=== PATIENT | male | born 1980 | race Caucasian/White ===

== ENCOUNTER 2021-07-06 09:55 | Emergency (ER) | payer BC, SELFPAY ==
[2021-07-06 10:46] VITALS: BP 134/90; PULSE 84; RESP 19; TEMP 36.8; O2SAT 98; BMI 26.4
--- NOTE | 2021-07-06 10:48 | HMH.EDUTC ---
[facility] [place] Clinical Impression: Strep throat Disposition: Home, Self-Care Condition on Discharge: Good Instructions: DI for Strep Throat, Strep Throat Additional Instructions: Drink plenty of fluids. Take tylenol or ibuprofen for pain or fever. Take the medications as directed. Follow up with your regular doctor. GO TO THE ER FOR ANY WORSENING SYMPTOMS Throw your tooth brush away and get a new one. Prescriptions: Brompheniramine/Pseudoephed/Dm [Bromfed Dm Cough Syrup] 5 ml PO Q6HP PRN #240 ml PRN Reason: Cough Transmission Status: Pending to [facility] # Amoxicillin [Amoxicillin 500mg Tab] 500 mg PO TID 10 Days #30 tab Transmission Status: Pending to [facility] # methylPREDNISolone [Medrol] 4 mg PO DIRECTED 6 Days #21 packet Transmission Status: Pending to [facility] # Referrals: Provider,Referral, MD [Primary Care Provider] - Forms: Work/School Release Time of Disposition: 11:41 Medical Decision Making - Medical Records Medical records reviewed: No: I reviewed the patient's medical records. - Karthikeyan Inquiry Pt receiving controlled substance: No Vital Signs: 07/06/21 10:46 Temperature 98.2 F Temperature Source Oral Pulse Rate [Left] 84 Respiratory Rate 19 Blood Pressure [Right Arm] 134/90 Blood Pressure Mean [Right Arm] 104 02 Sat by Pulse Oximetry 98 - Lab Data Lab results reviewed: Yes: I reviewed the patient's lab results. Lab Results 07/06/21 10:53: Strep Scn Rapid Clinic Positive [facility] [place] - General Stated complaint: possible strep Time Seen by Provider: 07/06/21 10:48 - History of Present Illness Provider Complaint: He states that he has had a sore throat for the past 2 days. He has had chilling and low grade fever also. - Related Data Previous Rx's Medication Instructions Recorded Amoxicillin [Amoxicillin 500mg Tab] 500 mg PO TID 10 Days #30 tab 07/06/21 Brompheniramine/Pseudoephed/Dm 5 ml PO Q6HP PRN #240 ml 07/06/21 [Bromfed Dm Cough Syrup] methylPREDNISolone [Medrol] 4 mg PO DIRECTED 6 Days #21 07/06/21 packet Allergies Allergy/AdvReac Type Severity Reaction Status Date / Time No Known Allergies Allergy Verified 07/06/21 10:49 [facility] History - Hepatitis A Screen Attestation statement:: This patient has been screened for Hepatitis A risk factors. I have reviewed the patient's past medical history: Yes ROS Obtained: Yes All systems reviewed & no additional complaints - Constitutional Constitutional: Reports as per HPI - Eyes Eyes: Denies eye discharge - ENT Ears, Nose, Mouth, and Throat: Reports as per HPI - Cardiovascular Cardiovascular: Denies chest pain - Respiratory Respiratory: Denies chest congestion, Reports cough, Denies dyspnea, Denies stridor, Denies wheezing - Gastrointestinal Gastrointestingal: Reports: nausea. Denies: abdominal pain, diarrhea, vomiting - Musculoskeletal Musculoskeletal: Denies joint pain - Integumentary/Breasts Skin/Breast: Denies rash Physical Exam - General General appearance: alert, in no apparent distress - Head Head exam: atraumatic, normocephalic, normal inspection - Eye Eye exam: Present: normal appearance, PERRL, EOMI - ENT ENT exam: Present: mucous membranes moist, normal external ear exam - Expanded ENT Exam TM/Canal exam: Bilateral TM: erythema, bulging Nose exam: Absent: sinus tenderness Nasal speculum exam: Bilateral: normal Mouth exam: Present: normal external inspection, tongue normal. Absent: drooling Teeth exam: Present: normal inspection Throat exam: Present: tonsillar erythema, tonsillomegaly, tonsillar exudate. Absent: R peritonsillar mass, L peritonsillar mass, muffled voice - Neck Neck exam: Present: normal inspection, full ROM, trachea midline. Absent: meningismus, lymphadenopathy - Chest Chest inspection: Present: normal inspection, symmetric chest wall rise. Absent
[2021-07-06 10:54] LABS: UTC Strep Screen (Rapid) Positive (Negative)
[2021-07-06 11:47] VITALS: BP 134/90; PULSE 84; RESP 19; TEMP 36.8
== END 2021-07-06 11:48 | disposition home or self-care (01) ==
PROVIDERS: Emergency Provider Nurse Practitioner Family
DX: J02.0 Streptococcal pharyngitis (principal); B95.0 Streptococcus, group A, as the cause of diseases classified elsewhere
CPT/HCPCS: 87880; 99213; 99283; G0463

== ENCOUNTER 2021-12-25 09:33 | Emergency (ER) | payer BC, SELFPAY ==
[2021-12-25 09:45] VITALS: BP 137/84; PULSE 80; RESP 18; TEMP 36.8; O2SAT 97; BMI 26.4
--- NOTE | 2021-12-25 10:10 | EXP.UTC ---
Discharge Plan Disposition Patient Disposition: Home, Self-Care Condition: Good Prescriptions Prescriptions: New amoxicillin 875 mg tablet 875 mg PO BID 10 Days Qty: 20 0RF veottgtfskqzkew-qataftsqg-JF [Bromfed DM] 2-30-10 mg/5 mL syrup 10 ml PO Q6H PRN (Reason: cold symptoms) Qty: 200 0RF No Action amoxicillin 500 MG tablet 500 mg PO TID 10 Days Qty: 30 0RF methylprednisolone 4 MG tablets,dose pack 4 mg PO DIRECTED 6 Days Qty: 21 0RF gwmkxxubzddoqxc-jymvjxkab-QP 118 ML syrup 5 ml PO Q6HP PRN (Reason: Cough) Qty: 240 0RF Referrals Follow up/Referrals: Provider,Referral, MD [Primary Care Provider] - See instructions Activity Restrictions/Add. Instructions Additional Instructions/Restrictions: Take medication as prescribed. Wait one week and if drainage turns green then take antibiotics. Increase fluids and rest. If no improvement or symptoms worsen, follow up with PCP. Clinical Impressions Clinical Impression: Acute upper respiratory infection Discharge ED Provider: Mariangel Zafar [facility] General Stated complaint: cough, drainage Mode of Arrival: Ambulatory Source of Information: Patient Limitations: No Limitations Time Seen by Provider: 12/25/21 10:00 Description of Symptoms (Recalled from Triage Doc. by RN): PATIENT C/O COUGH AND SINUS CONGESTION X 2 DAYS HEENT Symptoms (Recalled from RN notes): Yes Resp Symptoms (Recalled from RN notes): Yes Skin Symptoms (Recalled from RN notes): No MS Symptoms (Recalled from RN notes): No Functional Status (Recalled from RN notes): WNL History of Present Illness Provider Complaint: pt relates that for the last 2 days he has had a dry cough and sinus symptoms. Pt states that he has not taken anything for his symptoms. He relates that he does not want a Covid test. Related Data Previous Rx's Medication Instructions Recorded amoxicillin 500 mg tablet 500 mg PO TID 10 days #30 tabs 07/06/21 smvnrfndssaobqz-xbqakitqvmxumim-PH 5 ml PO Q6HP PRN Cough #240 mL 07/06/21 2 mg-30 mg-10 mg/5 mL oral syrup methylprednisolone 4 mg tablets in 4 mg PO DIRECTED 6 days #21 07/06/21 a dose pack packets amoxicillin 875 mg tablet 875 mg PO BID 10 days #20 tabs 12/25/21 qznfkszavgyqjoz-kpligcnxoeghenx-EI 10 ml PO Q6H PRN cold symptoms 12/25/21 2 mg-30 mg-10 mg/5 mL oral syrup #200 mL (Bromfed DM) Allergies Allergy/AdvReac Type Severity Reaction Status Date / Time No Known Allergies Allergy Verified 07/06/21 10:49 Worker's Comp Is this a Worker's Comp case?: No PFSH PFSH Medical History (Updated 12/25/21 @ 10:16 by Mariangel Zafar APRN) Hyperlipidemia Surgical History (Updated 12/25/21 @ 09:56 by Rita Hinojosa, RN) History of adenoidectomy Social History (Updated 12/25/21 @ 09:56 by Rita Hinojosa, DOM) Smoking Status: Unknown if ever smoked alcohol intake: current current occupational status: employed Travel in the last 8 weeks: Inside the [place] ROS Obtained: Yes All systems reviewed & no additional complaints except as documented and Yes Systems reviewed as appropriate & no additional complaints except as documented Constitutional Constitutional: Reports system reviewed and no additional complaints, except as documented ENT Ears, Nose, Mouth, and Throat: Reports nasal congestion, Reports nasal discharge, Reports post nasal drip and Reports sinus pressure Cardiovascular Cardiovascular: Reports system reviewed and no additional complaints, except as documented and Denies dyspnea Respiratory Respiratory: Denies shortness of breath, Reports cough, Reports non-productive cough and Denies dyspnea Musculoskeletal Musculoskeletal: Reports system reviewed and no additional complaints, except as documented Integumentary/Breasts Skin/Breast: Reports system reviewed and no additional complaints, except as documented Neurologic Neurologic: Reports system reviewed and no additional complaints, except as document
[2021-12-25 10:21] VITALS: BP 129/77; PULSE 89; RESP 19; TEMP 36.8; O2SAT 99
== END 2021-12-25 10:22 | disposition home or self-care (01) ==
PROVIDERS: Emergency Provider Nurse Practitioner Family
DX: J22 Unspecified acute lower respiratory infection (principal)
CPT/HCPCS: 99212; G0463

== ENCOUNTER 2022-09-15 09:39 | Emergency (ER) | payer BC, SELFPAY ==
[2022-09-15 09:39] VITALS: BP 128/75; PULSE 65; RESP 18; TEMP 37.2; O2SAT 98; BMI 26.4
--- NOTE | 2022-09-15 10:12 | EXP.UTC ---
Discharge Plan Disposition Patient Disposition: Home, Self-Care Condition: Good Prescriptions Prescriptions: New prednisone 10 mg tablet 10 mg PO BID 3 Days Qty: 6 0RF amoxicillin [amoxicillin] 875 mg tablet 875 mg PO Q12H Qty: 20 0RF No Action amoxicillin 500 MG tablet 500 mg PO TID 10 Days Qty: 30 0RF methylprednisolone 4 MG tablets,dose pack 4 mg PO DIRECTED 6 Days Qty: 21 0RF sjnnujfcfugkoda-bbiwkcoxs-EJ 118 ML syrup 5 ml PO Q6HP PRN (Reason: Cough) Qty: 240 0RF amoxicillin 875 mg tablet 875 mg PO BID 10 Days Qty: 20 0RF pthrszzbzazwpkf-glbtgtubf-UF [Bromfed DM] 2-30-10 mg/5 mL syrup 10 ml PO Q6H PRN (Reason: cold symptoms) Qty: 200 0RF Referrals Follow up/Referrals: Provider,Referral, MD [Primary Care Provider] - See instructions Activity Restrictions/Add. Instructions Additional Instructions/Restrictions: Drink plenty of fluids. Take tylenol or ibuprofen for pain or fever. Take the medications as directed. Follow up with your regular doctor. GO TO THE ER FOR ANY WORSENING SYMPTOMS Throw your tooth brush away and get a new one. Clinical Impressions Clinical Impression: Strep throat Instructions Patient Instructions: DI for Strep Throat Discharge ED Provider: [facility] General Stated complaint: sore throat Time Seen by Provider: 09/15/22 10:12 History of Present Illness Provider Complaint: He states that for the past 4 days he has had sore throat, malaise, chills, and a dry cough. Related Data Previous Rx's Medication Instructions Recorded amoxicillin 500 mg tablet 500 mg PO TID 10 days #30 tabs 07/06/21 belvvpuahybemba-htskwuwerekwhdu-KR 5 ml PO Q6HP PRN Cough #240 mL 07/06/21 2 mg-30 mg-10 mg/5 mL oral syrup methylprednisolone 4 mg tablets in 4 mg PO DIRECTED 6 days #21 07/06/21 a dose pack packets amoxicillin 875 mg tablet 875 mg PO BID 10 days #20 tabs 12/25/21 iecymetuaqechrv-dlgffrncvirfeon-IU 10 ml PO Q6H PRN cold symptoms 12/25/21 2 mg-30 mg-10 mg/5 mL oral syrup #200 mL (Bromfed DM) amoxicillin 875 mg tablet 875 mg PO Q12H #20 tabs 09/15/22 prednisone 10 mg tablet 10 mg PO BID 3 days #6 tabs 09/15/22 Allergies Allergy/AdvReac Type Severity Reaction Status Date / Time No Known Allergies Allergy Verified 07/06/21 10:49 [facility] Disclaimer: The information contained in this section may have been updated after the patient was seen, as this information can be updated by other users. Medical History Hyperlipidemia Surgical History History of adenoidectomy Social History Smoking Status: Unknown if ever smoked alcohol intake: current current occupational status: employed Travel in the last 8 weeks: [place] the [place] ROS Obtained: Yes All systems reviewed & no additional complaints except as documented Constitutional Constitutional: Reports chills and Reports fever(s) Eyes Eyes: Denies eye discharge ENT Ears, Nose, Mouth, and Throat: Reports as per HPI Cardiovascular Cardiovascular: Denies chest pain Respiratory Respiratory: Denies chest congestion and Reports cough Gastrointestinal Gastrointestingal: Reports nausea; Denies abdominal pain, constipation, cramping, diarrhea or vomiting Musculoskeletal Musculoskeletal: Denies arthralgias Integumentary/Breasts Skin/Breast: Denies rash Neurologic Neurologic: Denies paresthesias Physical Exam General General appearance: alert and in no apparent distress Head Head exam: atraumatic, normocephalic and normal inspection Eye Eye exam: Present normal appearance, PERRL and EOMI ENT ENT exam: Present mucous membranes moist and normal external ear exam Expanded ENT Exam TM/Canal exam: Bilateral TM: erythema and bulging Nose exam: Absent sinus tenderness Mouth exam: Present myke
[2022-09-15 10:21] LABS: UTC Strep Screen (Rapid) Positive (Negative)
[2022-09-15 10:40] VITALS: BP 128/75; PULSE 65; RESP 18; TEMP 37.2; O2SAT 98
== END 2022-09-15 10:41 | disposition home or self-care (01) ==
PROVIDERS: Emergency Provider Nurse Practitioner Family
DX: J02.0 Streptococcal pharyngitis (principal); R53.81 Other malaise; R68.83 Chills (without fever); E78.5 Hyperlipidemia, unspecified
CPT/HCPCS: 87880; 99212; 99214; G0463

== ENCOUNTER 2023-03-24 08:20 | Emergency (ER) | payer BC, SELFPAY ==
--- NOTE | 2023-03-24 08:38 | EXP.UTC ---
Discharge Plan Disposition Patient Disposition: Home, Self-Care Condition: Good Prescriptions Prescriptions: New azithromycin [Zithromax] 250 mg tablet 250 mg PO UD DOSE PK Qty: 6 0RF Rx Instructions: Take two (2) tablets today, then one (1) tablet days #2 thru #5 methylprednisolone 4 mg Tablets,Dose Pack 4 mg PO DIRECTED Qty: 21 0RF nrzaywtacdqoeys-fywqpwjlb-FM [Bromfed DM] 2-30-10 mg/5 mL Syrup 5 ml PO Q6H PRN (Reason: Cough) Qty: 240 0RF Referrals Follow up/Referrals: Librado Noyola MD [Primary Care Provider] - See instructions Activity Restrictions/Add. Instructions Additional Instructions/Restrictions: Drink plenty of fluids. Take tylenol or ibuprofen for pain or fever. Take the medications as directed. Follow up with your regular doctor. GO TO THE ER FOR ANY WORSENING SYMPTOMS Clinical Impressions Clinical Impression: Sinusitis Instructions Patient Instructions: Sinusitis, DI for Sinusitis Discharge ED Provider: Star [facility] General Stated complaint: possible strep Time Seen by Provider: 03/24/23 08:38 History of Present Illness Provider Complaint: He c/o having a sore throat and sinus drainage for the past 3 days. He denies any fever/chills/body aches. Related Data Previous Rx's Medication Instructions Recorded azithromycin 250 mg tablet 250 mg PO UD DOSE PK #6 tabs 03/24/23 (Zithromax) pxdlgvdnkhohonp-nrzwmtvkcixqmyq-ZV 5 ml PO Q6H PRN Cough #240 mL 03/24/23 2 mg-30 mg-10 mg/5 mL oral syrup (Bromfed DM) methylprednisolone 4 mg tablets in 4 mg PO DIRECTED #21 tabs 03/24/23 a dose pack Allergies Allergy/AdvReac Type Severity Reaction Status Date / Time No Known Allergies Allergy Verified 03/24/23 08:52 [facility] Disclaimer: The information contained in this section may have been updated after the patient was seen, as this information can be updated by other users. Medical History Hyperlipidemia Surgical History History of adenoidectomy Social History Smoking Status: Unknown if ever smoked alcohol intake: current current occupational status: employed Travel in the last 8 weeks: [place] the [place] ROS Obtained: Yes All systems reviewed & no additional complaints except as documented Constitutional Constitutional: Reports poor appetite Eyes Eyes: Reports system reviewed and no additional complaints, except as documented ENT Ears, Nose, Mouth, and Throat: Reports as per HPI Cardiovascular Cardiovascular: Reports system reviewed and no additional complaints, except as documented and Denies chest pain Respiratory Respiratory: Denies shortness of breath, Denies chest congestion, Reports cough, Denies stridor and Denies wheezing Gastrointestinal Gastrointestingal: Reports system reviewed and no additional complaints, except as documented; Denies abdominal pain, diarrhea or vomiting Musculoskeletal Musculoskeletal: Reports system reviewed and no additional complaints, except as documented and Denies arthralgias Integumentary/Breasts Skin/Breast: Reports system reviewed and no additional complaints, except as documented and Denies rash Neurologic Neurologic: Denies paresthesias Allergic/Immunologic Allergic/Immunologic: Denies wheezing Physical Exam General General appearance: alert and in no apparent distress Eye Eye exam: Present normal appearance, PERRL and EOMI ENT ENT exam: Present mucous membranes moist and normal external ear exam Expanded ENT Exam External ear exam: Present normal external inspection TM/Canal exam: Bilateral TM: erythema and bulging Nose exam: Absent sinus tenderness Nasal speculum exam: Bilateral: normal Mouth exam: Present normal external inspection; Absent drooling Teeth exam: Present normal inspection Throat exam: Present tonsi
[2023-03-24 08:40] VITALS: BP 141/99; PULSE 58; RESP 18; TEMP 37.1; O2SAT 97; BMI 26.3
[2023-03-24 08:53] LABS: UTC Strep Screen (Rapid) Negative (Negative)
[2023-03-24 09:22] VITALS: BP 141/99; PULSE 58; RESP 18; TEMP 37.1; O2SAT 97
== END 2023-03-24 09:22 | disposition home or self-care (01) ==
PROVIDERS: Emergency Provider Nurse Practitioner Family; PCP Internal Medicine
DX: J01.90 Acute sinusitis, unspecified (principal); R07.0 Pain in throat; R09.82 Postnasal drip; E78.5 Hyperlipidemia, unspecified
CPT/HCPCS: 87880; 99212; 99214; G0463

== ENCOUNTER 2023-04-19 08:54 | Emergency (ER) | payer BC, SELFPAY ==
[2023-04-19 08:56] VITALS: BP 127/79; PULSE 70; RESP 16; TEMP 36.6; O2SAT 97; BMI 26.4
[2023-04-19 09:17] LABS: UTC Strep Screen (Rapid) Negative (Negative)
--- NOTE | 2023-04-19 09:17 | EXP.UTC ---
Discharge Plan Disposition Patient Disposition: Home, Self-Care Condition: Good Prescriptions Prescriptions: New azithromycin [Zithromax Z-Mayur] 250 mg tablet See Rx Instructions .ROUTE .COMPLEX 5 Days Qty: 6 0RF Rx Instructions: For 250 mg dose pack: take 500 mg today (day 1), then 250 mg for 4 days (days 2-5) No Action azithromycin [Zithromax] 250 mg tablet 250 mg PO UD DOSE PK Qty: 6 0RF Rx Instructions: Take two (2) tablets today, then one (1) tablet days #2 thru #5 methylprednisolone 4 mg Tablets,Dose Pack 4 mg PO DIRECTED Qty: 21 0RF nkwvyadqigxyqav-nozthzpgy-WF [Bromfed DM] 2-30-10 mg/5 mL Syrup 5 ml PO Q6H PRN (Reason: Cough) Qty: 240 0RF Referrals Follow up/Referrals: Provider,Referral, [Primary Care Provider] - See instructions Activity Restrictions/Add. Instructions Additional Instructions/Restrictions: *Monitor Temp, Over the counter Motrin or Tylenol as directed/as needed Tylenol every 4 hours and Motrin every 6 hours (as long as your family doctor has told you that you can take it) for fever or pain. and straight to ER if unable to lower temp less than 101.0 after medication given *Warm salt water gargles may help to soothe the throat *Throat Lozenges? *Warm fluids like tea with honey may help to soothe the throat? *Sleep elevated *Humidifier/Vaporizer Your throat swab was sent for culture. Those results are typically sent to your primary care. Be sure to follow up in 2-3 days with your family doctor/primary care physician if no improvement so they can review those result and treat if necessary. If you don?t have a primary care doctor, I recommend you get one but in the mean time, you will have to return to a walk in clinic Follow up IMMEDIATELY for new or worsening symptoms or no Noticeable improvement over the next 48-72 hours. 911 for difficulty breathing or swallowing Clinical Impressions Clinical Impression: Pharyngitis Qualifiers: Pharyngitis/tonsillitis etiology: unspecified etiology Qualified Code(s): J02.9 - Acute pharyngitis, unspecified Instructions Patient Instructions: Sore Throat, Amoxicillin Discharge ED Provider: Nicki Samuel [facility] General Stated complaint: Sore throat Mode of Arrival: Ambulatory Source of Information: Patient Limitations: No Limitations Time Seen by Provider: 04/19/23 09:17 Description of Symptoms (Recalled from Triage Doc. by RN): Patient reports a sore throat for 1 week. HEENT Symptoms (Recalled from RN notes): Yes Resp Symptoms (Recalled from RN notes): No Skin Symptoms (Recalled from RN notes): No MS Symptoms (Recalled from RN notes): No Functional Status (Recalled from RN notes): wnl History of Present Illness Provider Complaint: Patient states that he has had sore throat for about a week States that it feels like it did when he had strep throat States that today the right side of his throat was hurting worse so he came in to get it checked Related Data Previous Rx's Medication Instructions Recorded azithromycin 250 mg tablet 250 mg PO UD DOSE PK #6 tabs 03/24/23 (Zithromax) ygyudqkkqbshtcg-lcfqwflpfsyzhxu-RB 5 ml PO Q6H PRN Cough #240 mL 03/24/23 2 mg-30 mg-10 mg/5 mL oral syrup (Bromfed DM) methylprednisolone 4 mg tablets in 4 mg PO DIRECTED #21 tabs 03/24/23 a dose pack azithromycin 250 mg tablet See Rx Instructions PO .COMPLEX 5 04/19/23 (Zithromax Z-Mayur) days #6 tabs Allergies Allergy/AdvReac Type Severity Reaction Status Date / Time No Known Allergies Allergy Verified 03/24/23 08:52 Worker's Comp Is this a Worker's Comp case?: No [facility] Disclaimer: The information contained in this section may have been updated after the patient was seen, as this information can be updated by other users. Medical History Hyperlipidemia Surgical History History of adenoidectomy Social History Smoking Status: Unknown if ever smoked alcohol intake: current current occupational status: employed Travel in the last 8 weeks: [place] the [place] ROS Obtained: Yes All systems reviewed & no additional complaints except as documented and Yes Systems reviewed as appropriate & no additional complaints except as documented Constitutional Constitutional: Reports system reviewed and no additional complaints, except as documented and Reports as per HPI ENT Ears, Nose, Mouth, and Throat: Reports system reviewed and no additional complaints, except as documented, Reports as per HPI and Reports sore throat Cardiovascular Cardiovascular: Reports system reviewed and no additional complaints, except as documented and Reports as per HPI Respiratory Respiratory: Reports system reviewed and no additional complaints, except as documented and Reports as per HPI Gastrointestinal Gastrointestingal: Reports system reviewed and no additional complaints, except as documented and as per HPI Physical Exam General General appearance: alert and in no apparent distress ENT ENT exam: Present mucous membranes moist Expanded ENT Exam Throat exam: Present tonsillar erythema Respiratory Respiratory exam: Present normal lung sounds bilaterally; Absent respiratory distress or wheezes Cardiovascular Cardiovascular exam: Present regular rate, normal rhythm and irregular rhythm Abdominal Exam Abdominal exam: Present soft and normal bowel sounds; Absent distention or tenderness Neurological Exam Neurological exam: Present alert, oriented X3 and normal gait Psychiatric Psychiatric exam: Present normal affect, normal mood and anxious Medical Decision Making Karthikeyan Inquiry Pt receiving controlled substance: No Karthikeyan was queried for this patient: No Vital Signs: 04/19/23 08:56 Temperature 97.9 F Temperature Source Oral Pulse Rate [Radial] 70 Respiratory Rate 16 Blood Pressure [Right Arm] 127/79 Blood Pressure Mean [Right Arm] 95 Blood Pressure Source [Right Arm] Automatic Cuff Blood Pressure Position [Right Arm] Sitting 02 Sat by Pulse Oximetry 97 Oxygen Delivery Method Room Air Lab Data Lab results reviewed: Yes I reviewed the patient's lab results. Lab Results 04/19/23 08:59: Strep Scn Rapid Clinic Negative
[2023-04-19 09:30] VITALS: BP 127/79; PULSE 70; RESP 16; TEMP 36.6; O2SAT 97
== END 2023-04-19 09:31 | disposition home or self-care (01) ==
PROVIDERS: Emergency Provider Nurse Practitioner
DX: J02.9 Acute pharyngitis, unspecified (principal)
CPT/HCPCS: 87880; 99212; 99214; G0463

== ENCOUNTER 2024-02-09 09:40 | Outpatient (CLI) | payer OTHER, SELFPAY ==
--- NOTE | 2024-02-09 09:48 | XR_ITS ---
PROCEDURE INFORMATION: Exam: XR Right Shoulder Exam date and time: 02/09/2024 9:53 AM Age: 43 years old Clinical indication: Pain; Shoulder; Right TECHNIQUE: Imaging protocol: Radiologic exam of the right shoulder. Views: 2 or more views. COMPARISON: No relevant prior studies available. FINDINGS: Bones/joints: Bones are intact with preservation of the acromioclavicular and glenohumeral joints. No acute fracture, dislocation or significant arthritic change. Sclerotic focus within the humeral head is nonspecific and most consistent with an incidental bone island. Soft tissues: Unremarkable. No periarticular calcifications. IMPRESSION: No acute findings.
== END 2024-02-09 23:59 | disposition home or self-care (01) ==
LOC: RAD 09:43
PROVIDERS: PCP Pediatrics; Visit Provider Pediatrics
DX: M25.511 Pain in right shoulder (principal)
CPT/HCPCS: 73030

== ENCOUNTER 2024-07-03 08:35 | Outpatient (CLI) | payer OTHER, SELFPAY ==
[2024-07-03 12:45] LABS: Coronavirus 19, PCR Not Detected (NotDetected); Human Rhinovirus Not Detected (NotDetected); Influenza A, PCR Not Detected (NotDetected); Influenza B, PCR Not Detected (NotDetected); Respiratory Syncytial Virus Not Detected (NotDetected)
== END 2024-07-03 23:59 | disposition home or self-care (01) ==
LOC: LAB.DROPOF 07-04 10:21
PROVIDERS: PCP Nurse Practitioner; Visit Provider Nurse Practitioner
DX: J06.9 Acute upper respiratory infection, unspecified (principal)
CPT/HCPCS: 87631